=== PATIENT | female | born 1995 | race Caucasian/White ===

== ENCOUNTER 2017-06-07 16:21 | Emergency (ER) | payer OTHER, BC ==
[2017-06-07] MEDS ORDERED: Ibuprofen TAB* 800 MG PO ONE (18:02)
--- NOTE | 2017-06-07 18:54 | RAD ---
HISTORY: Facial trauma COMPARISONS: None TECHNIQUE: Multiple contiguous axial CT scans were obtained of the head without intravenous contrast. FINDINGS: HEMORRHAGE/INFARCT: There is no hemorrhage or acute infarct. MASSES/SHIFT: There is no mass or shift. EXTRA-AXIAL SPACES: There are no extra-axial fluid collections. SULCI AND VENTRICLES: The sulci and ventricles are normal in size and position for the patient's stated age. CEREBRUM: There are no focal parenchymal abnormalities. BRAINSTEM: There are no focal parenchymal abnormalities. CEREBELLUM: There are no focal parenchymal abnormalities. VESSELS: The vessels are grossly normal. PARANASAL SINUSES: There is opacification of the frontal sinuses there is a fracture through the anterior wall of the frontal sinus. ORBITS: The orbits are unremarkable. BONES AND SOFT TISSUE: No bone or soft tissue abnormalities are noted. OTHER: None IMPRESSION: NO ACUTE INTRACRANIAL PATHOLOGY. FRACTURE THROUGH THE ANTERIOR WALL OF THE FRONTAL SINUS.
--- NOTE | 2017-06-07 19:09 | RAD ---
HISTORY: Blunt trauma to face COMPARISONS: Head CT dated June 07, 2017 TECHNIQUE: Multiple contiguous axial CT scans were obtained of the face without intravenous contrast, with coronal and sagittal multiplanar reformations. FINDINGS: BONES: There is a comminuted and somewhat depressed fracture of the anterior wall of the right frontal sinus. There is a nondisplaced fracture of the right medial orbital wall. The piriform plate appears intact. There is no appreciable pneumocephalus ORBITS: The globes are round. The optic nerves are symmetric. The extraocular musculature is normal. There is no post septal or intraconal inflammatory change. There is no retrobulbar hematoma. PARANASAL SINUSES: There is near-fluid level within the frontal sinus. There is mucosal thickening of ethmoid air cells. BRAIN AND SOFT TISSUE: Unremarkable. OTHER: None. IMPRESSION: 1. COMMINUTED AND SOMEWHAT DEPRESSED FRACTURE OF THE ANTERIOR WALL OF THE FRONTAL SINUS, WITH EXTENSION INTO THE SINUS AND INTO THE RIGHT MEDIAL ORBITAL WALL. 2. THERE IS NO APPRECIABLE PNEUMOCEPHALUS.
--- NOTE | 2017-06-07 19:56 | ED ---
Head Injury - HPI Summary HPI Summary: Pt here w/ facial pain and swelling as well as bloody nose since collision earlier today. SHe was playing soccer when another player caused blunt trauma to her face - pt is not sure if this was her head or elbow. She had consistent bleeding for 20 minutes then slower bleeding for another 15-20 minutes. This has finally stopped on its own as she admits she did not apply pressure as it was too painful. She admits she had some confusion and dizziness with loss of balance when this first occurred but no longer feels this way. Pain is in front of face - not head/scalp/skull. She also admits to pain with focusing eyes up when this first happened but this has improved since - no pain with eye movement now. Denies nausea, vomiting, neck pain, numbness, tingling, weakness, syncope, dental pain, oral pain. Breathing and swallowing without difficulty. No other injuries to report. Pt goes to school in [place] - she was here for a soccer game against [place] - plans to return to [facility]. - History Of Current Complaint Chief Complaint: EDFacialInjury Stated Complaint: BLOODY NOSE/HIT TO FACE Time Seen by Provider: 06/07/17 17:41 Hx Obtained From: Patient, Family/Manufacturing Recruiter - parents Pain Intensity: 9 - Allergies/Home Medications Allergies/Adverse Reactions: Allergies Allergy/AdvReac Type Severity Reaction Status Date / Time No Known Allergies Allergy Verified 06/07/17 16:23 PMH/Surg Hx/FS Hx/Imm Hx Previously Healthy: Yes Endocrine/Hematology History: Denies: Hx Anticoagulant Therapy, Hx Blood Disorders Infectious Disease History: No Infectious Disease History: Denies: Traveled Outside the [place] in Last 30 Days - Family History Known Family History: Positive: None - Social History Occupation: Student Lives: With Family - roommates Alcohol Use: Occasionally - but not during season Hx Substance Use: No Substance Use Type: Reports: None Hx Tobacco Use: No Smoking Status (MU): Never Smoked Tobacco Review of Systems Constitutional: Negative Negative: Fatigue Eyes: Other - see HPI ENT: Other - see HPI Cardiovascular: Negative Respiratory: Negative Gastrointestinal: Negative Positive: no symptoms reported Musculoskeletal: Negative Positive: Bruising - forehead/nose Neurological: Negative Positive: Anxious All Other Systems Reviewed And Are Negative: Yes Physical Exam Triage Information Reviewed: Yes Vital Signs On Initial Exam: Initial Vitals Temp Pulse Resp BP Pulse Ox 97.8 F 93 20 121/62 98 06/07/17 16:23 06/07/17 16:23 06/07/17 16:23 06/07/17 16:23 06/07/17 16:23 Vital Signs Reviewed: Yes Appearance: Positive: Well-Appearing, Well-Nourished, Pain Distress - mild at rest - more agitated Skin: Positive: Warm, Dry - edema with ecchymosis over frontal central forehead and nasal bridge - no skin breakdown; dried blood about and within Rt nare - no active bleeding Head/Face: Positive: Other - as above - no other deformity observed - no battlesign, no step off, no racoon eyes Eyes: Positive: Normal, EOMI - w/o pain, MENA, Conjunctiva Clear ENT: Positive: Hearing grossly normal, Pharynx normal - no blood, TMs normal - no hemotympanum, Other - NOSE: as above. Negative: Nasal congestion, Nasal drainage Dental: Negative: Dental Fracture @ Neck: Positive: Supple, Nontender Respiratory/Lung Sounds: Positive: Clear to Auscultation, Breath Sounds Present. Negative: Subcutaneous Emphysema, Stridor, Tracheal Deviation Cardiovascular: Positive: Normal, RRR, Pulses are Symmetrical in both Upper and Lower Extremities, S1, S2 Abdomen Description: Positive: Nontender, Soft Bowel Sounds: Positive: Present Musculoskeletal: Positive: Normal, Strength/ROM Intact Neurological: Positive: Normal, Sensory/Motor Intact, Alert, Oriented to Person Place, Time, CN Intact II-III Psychiatric: Positive: Anxious - Stefanie Coma Scale Coma Scale Total: 15 Diagnostics - Vital Signs Vital Signs Temp Pulse Resp BP Pulse Ox 06/07/17 17:28 97.8 F 98 20 121/62 98 06/07/17 16:23 97.8 F 93 20 121/62 98 - Laboratory Lab Statement: Any lab studies that have been ordered have been reviewed, and results considered in the medical decision making process. Head Injury Course/Dx Course Of Treatment: Pt presents A&O x 3 s/p facial trauma. CT report indicates Rt sinus fracture and Rt medial orbit fx. She is breathing well, epistaxis resolved and mentating well. Dx'd w/ facial fx's and concussion. Reviewed w/ Dr. Quiroz. Education provided and advised to f/u w/ ENT/Plastic surgery Shakeel for further guidance of care. Pt and parents voice understanding. - Diagnoses Provider Diagnoses: Right orbital fracture, Maxillary sinus fracture, Concussion, Contusion - Physician Notifications Discussed Care Of Patient With: Omar Quiroz Discharge - Discharge Plan Condition: Stable Disposition: HOME Patient Education Materials: Facial Fracture (ED), Nosebleed (ED), Concussion ( ED) Forms: *Physical Education Release Referrals: Non Staff,Doctor [Primary Care Provider] - Additional Instructions: You have a fracture of your Rt maxillary sinus as well as your Right medial orbit (the inner part of your eye bone). It is important that you rest to allow these areas to heal. Swelling will take time to reduce and so if you need surgery this will not be done until swelling has improved. You may reduce swelling also by applying ice and performing gentle saline washes within your nasal passages. Do not blow you nose hard and try to avoid sneezing, coughing, vomiting, etc as best as possible.You may also take ibuprofen with food to reduce pain and swelling. Call an ENT or plastic surgeon Friday to schedule an appointment. You may provide your diagnosis as reported on CT scan for them to decide if they can handle your care or not. Bring you CT disc and report with you to your appointment. If you develop return of nosebleed, lean forward and firmly pinch the soft part of your nose at the bottom for 20 minutes. If no cessation, go to the nearest ED. You are also being diagnosed with a mild concussion. It is important that you rest physically and cognitively in an effort to reduce furthering injury to brain tissue. Monitor your symptoms for neurological changes over the next 24 hours - these may be headache, nausea, vomiting, visual change, light sensitivity, balance issues, numbness, tingling, weakness, syncope. Have someone make sure you are alert and oriented every 3 hours - this may be done by asking your name, date, location and opening your eyes, blinking them and squeezing a hand. If you are unable to perform any of these tasks correctly, return to the nearest ED. Follow-up with your girls tennis coach Friday to review symptoms and decide a protocol that assesses your safe return to activity.
[2017-06-07 20:03] VITALS: BP 118/66
== END 2017-06-07 20:09 | disposition home or self-care (01) ==
LOC: ED 16:21
DX: S02.81XA Fracture of other specified skull and facial bones, right side, initial encounter for closed fracture (principal); S06.0X9A Concussion with loss of consciousness of unspecified duration, initial encounter; S02.401A Maxillary fracture, unspecified side, initial encounter for closed fracture; W50.0XXA Accidental hit or strike by another person, initial encounter; Y93.66 Activity, soccer; Y92.89 Other specified places as the place of occurrence of the external cause
CPT/HCPCS: 70450; 70486; 99282; A9270-GY